=== PATIENT | female | born 1950 | race Caucasian/White ===

== ENCOUNTER → 2021-07-16 11:21 | Outpatient (CLI) | payer MEDICARE, OTHER, SELFPAY ==
--- NOTE | 2021-07-16 11:33 | DI.ECHO.S_ITS ---
[facility] +---------+ : : [address] : : : [place], [place] : : : : [id number] : : : : Phone: [phone]+ Echocardiogram Report + + :Name: JAMEY FITZGERALD Study Date: 07/16/2021 Height: 64 in : :[facility] ReadingLocation: Weight: 140 lb : : Gender: Female BSA: 1.7 m2 : :: 1950 Age: 70 yrs BP: 142/98 mmHg: :Reason For Study: Syncope : :Ordering Physician: DULCE, : :CARLINE Performed By: Peter Estrada : :Referring: CARLINE CONSTANTINO : + + Interpretation Summary 1) Normal left ventricular thickness, size, wall motion, and systolic function (EF 60-65%). 2) Normal right ventricular size and function. 3) No significant valvular abnormalities. 4) No prior Echo available for comparison. Procedure: A two-dimensional transthoracic echocardiogram with color flow and Doppler was performed. The study quality was technically adequate. There is no prior echocardiogram noted for this patient. Left Ventricle: The left ventricle is normal in size and wall thickness. Left ventricular systolic function is normal. The ejection fraction is estimated to be 60-65%. There are no focal wall motion abnormalities. Diastolic parameters suggest probable normal left ventricular diastolic function and normal filling pressures. Right Ventricle: The right ventricle is normal in size and function. Atria: Both atria are normal in size. The interatrial septum grossly appears intact with no obvious evidence for an atrial septal defect. Mitral Valve: The mitral valve is normal in structure and function. There is no mitral regurgitation noted. Aortic Valve: The aortic valve is normal in structure and function. There is no aortic valve stenosis. No aortic regurgitation is present. Tricuspid Valve: The tricuspid valve is normal in structure and function. There is trace tricuspid regurgitation. Right ventricular systolic pressure is normal. Pulmonic Valve: The pulmonic valve is normal in structure and function. There is a trace or physiologic amount of pulmonic regurgitation. Great Vessels: The aortic root is normal size. The ascending aorta is at the upper limits of normal in size. The IVC is of normal diameter and collapses greater than 50% with a sniff. This suggests a low right atrial pressure of 3 mm Hg. Pericardium/ Pleura There is no pericardial effusion. There is no pleural effusion. MMode/2D Measurements & Calculations LVIDd: 4.5 cm LVOT diam: 1.8 cm LVIDs: 3.0 cm Ao root diam: 2.7 cm FS: 32.7 % asc Aorta Diam: 3.7 cm IVSd: 0.65 cm LVPWd: 0.77 cm LV proctor. diameter/BSA (cm/m^2): 2.7 LV sys. diameter/BSA (cm/m^2): 1.8 LA A2 area: 16.0 cm2 RA long axis: 4.1 cm LA A4 area: 13.1 cm2 RA area: 11.4 cm2 LA length (vol): 4.6 cm RA vol: 27.1 ml LA vol: 38.8 ml RA : 16.1 ml/m2 LA vol index: 23.1 ml/m2 TAPSE: 2.6 cm Doppler Measurements & Calculations Ao V2 max: 125.8 cm/sec LVOT Max [place]: 96.5 cm/sec Ao V2 mean: 84.7 cm/sec LV V1 max P.7 mmHg Ao max P.3 mmHg LV V1 VTI: 22.6 cm Ao mean P.2 mmHg GWEN(I,D): 2.3 cm2 Ao V2 VTI: 25.8 cm GWEN(V,D): 2.0 cm2 sev ratio: 0.87 GWEN indexed to BSA (cm^2/m^2): 1.4 MV E max cayetano: 76.8 cm/sec TR max cayetano: 191.0 cm/sec MV A max cayetano: 69.4 cm/sec TR max P.6 mmHg MV E/A: 1.1 Med Peak E' Cay[place]: 7.2 cm/sec E/E' med: 10.7 Lat Peak E' Cay[place]: 7.6 cm/sec E/E' lat: 10.1 E/e' average: 10.4 MV dec time: 0.19 sec SV(LVOT): 58.8 ml Reading Physician:12:[id number] PM
== END ==
PROVIDERS: PCP Internal Medicine; Referring Provider Internal Medicine Cardiovascular Disease; Visit Provider Internal Medicine Cardiovascular Disease
DX: R55 Syncope and collapse (principal)
CPT/HCPCS: 93306

== ENCOUNTER 2023-11-10 09:00 | Emergency (ER) | payer MEDICARE, OTHER, SELFPAY ==
[2023-11-10] VITALS (27 sets, daily range): BP systolic 140–180; BP diastolic 74–99; PULSE 66–91; RESP 15–26; TEMP 36.5; O2SAT 85–98; BMI 25.0
--- NOTE | 2023-11-10 09:04 | DI.RAD.S_ITS ---
PROCEDURE: XR CHEST 1V INDICATIONS: chest pain TECHNIQUE: One view of the chest was acquired. COMPARISON: [facility], CT, CT CHEST ABDOMEN PELVIS WITH CONTRAST, 09/05/2023, 14:45. FINDINGS: Surgical changes and devices: Right-sided port tip projects over the mid SVC. Lungs and pleura: Lungs are clear. No pleural effusions or pneumothorax. Mediastinum: Mediastinal contours appear normal. Heart size is normal. Bones and chest wall: No suspicious bony lesions. Overlying soft tissues appear unremarkable. IMPRESSION: No acute cardiopulmonary process. Dictated by: Jocelyn Arrieta M.D. on 11/10/2023 at 8:35 Approved by: Jocelyn Arrieta M.D. on 11/10/2023 at 8:36
--- NOTE | 2023-11-10 09:15 | EKG_ITS ---
[facility] [address], [place] [address] Test Date: 2023-11-10 Pat Name: Mariaelena Langford Department: [facility] Room: Gender: Female Grad Intern: FIONA : 1950 Requested By: Order Number: [id number] Reading MD: Logan Marshall MD Measurements Intervals [place] Rate: 77 P: 16 MA: 144 QRS: 11 QRSD: 72 T: 16 QT: 400 QTc: 452 Interpretive Statements Normal sinus rhythm Electronically Signed On 11-10-2023 11:03:51 PDT by Logan Marshall MD
[2023-11-10] MEDS: LORazepam 2 MG/ML INJ 0.5 MG IV (09:42)
[2023-11-10 09:45] LABS: Add Manual Diff / Slide Review NO; Basophils Absolute Auto 0 /uL (0-100); Basophils Percent Auto 0.3 % (0-2); Eosinophils Absolute Auto 0 /uL (0-450); Eosinophils Percent Auto 0.2 % (2-4); Hematocrit 36.3 % (36-46); Hemoglobin 12.2 g/dL (12.0-16.0); Lymphocytes Absolute Auto 500 /uL (1100-4500); Lymphocytes Percent Auto 5.6 % (25-40); Mean Corpuscular HGB Conc 33.7 % (30-36); Mean Corpuscular Hemoglobin 34.4 PG (26-34); Mean Corpuscular Volume 101.9 fL (80-100); Monocytes Absolute Auto 500 /uL (0-900); Monocytes Percent Auto 4.7 % (3-14); Neutrophils Absolute Auto 8700 /uL (1500-7000); Neutrophils Percent Auto 89.2 % (50-75); Platelet Count 94 X10^3/uL (150-400); Red Blood Cell Count 3.56 X10^6/uL (4.0-5.2); Red Cell Distribution Width 12.9 % (11.6-14.8); White Blood Cell Count 9.7 X10^3/uL (4.5-11.0)
[2023-11-10 09:54] LABS: Prothrombin Time 11.3 SECONDS (9.4-12.5)
--- NOTE | 2023-11-10 09:55 | PC.NURSE ---
pt was incontinent; brief changed and pt repositioned
[2023-11-10 09:56] LABS: PTT Partial Thromboplastin Tim 28 SECONDS (25.1-36.5)
[2023-11-10 10:06] LABS: Alanine Aminotransferase 40 IU/L (<35); Albumin 3.4 g/dL (3.5-5.0); Albumin Globulin Ratio 1.2 (1.0-2.8); Alkaline Phosphatase 147 U/L (38-126); Aspartate Aminotransferase 59 IU/L (14-36); Bilirubin Total 0.7 mg/dL (0.2-1.3); Blood Urea Nitrogen 21 mg/dL (7-17); Calcium 8.8 mg/dL (8.4-10.2); Carbon Dioxide 23 mmol/L (22-32); Chloride 106 mmol/L (98-107); Creatine Kinase 60 U/L (30-135); Estimated Glomerular Filt Rate > 60 mL/min (>60); Globulin 2.8 g/dL (1.7-4.1); Glucose 123 mg/dL (80-110); HEMOLYSIS < 15 (0-50); Lipase 139 U/L (23-300); Magnesium 1.8 mg/dL (1.6-2.3); Potassium 3.5 mmol/L (3.4-5.1); Sodium 136 mmol/L (137-145); Total Protein 6.2 g/dL (6.3-8.2)
--- NOTE | 2023-11-10 10:09 | ED.GENADULT ---
HPI - General Adult General Chief complaint: Syncope Stated complaint: syncope n+v Time Seen by Provider: 11/10/23 09:10 Source: patient, family and EMS Mode of arrival: EMS Limitations: no limitations History of Present Illness HPI narrative: 72-year-old female history of hypertension, colon cancer with prior colon resection who had surgery this past Friday for removal of cancerous lesions and had some scar tissue also resected that was concerning. Patient was discharged last night from [facility]. She is postop day 3. Patient overnight had syncopal episode x3 when she got up to have a bowel movement. Patient had had bowel movements she states her surgical prep was strawberry red colored and she was having bright red stools prior to her surgery as well as afterwards and it looked very similar to that. She states she went to [facility] [place] felt lightheaded slipped off the toilet and called for her and lost consciousness. They were able to start to walk her back to the bed got about 20 ft and then she had another syncopal episode. Patient states she has continued to feel dizzy when she is upright. No fevers or chills reported. Patient states she did not hit her head, denies any chest pain or shortness of breath. She did have an episode of vomiting this morning was described as bile colored. Had 1 episode at the facility the day after her surgery. Patient states she had diarrhea like stool today does describe it as dark red but states it looks very similar to her prior bowel movements pre and postop. Denies any urinary symptoms. She was on medication for hypertension, prior x3, hysterectomy, had colon resection in 2021 for colon cancer and was having revision for additional lesions and had some additional scar tissue removed that was concerning. This was performed by Dr. Candelaria at [facility]. Dr. Iverson is her oncologist. Primary care is at the [facility]. No tobacco, occasional alcohol, no illicit. Patient accompanied by her who witnessed. Related Data Allergies Allergy/AdvReac Type Severity Reaction Status Date / Time esomeprazole Allergy Severe Difficulty Verified 11/10/23 09:19 Breathing ampicillin Allergy Rash Verified 11/10/23 09:19 hydrochlorothiazide Allergy Swelling Verified 11/10/23 09:19 of Lip/Tongue/Throat lisinopril Allergy Swelling Verified 11/10/23 09:19 of Lip/Tongue/Throat NSAIDS (Non-Steroidal Allergy Nausea Verified 11/10/23 09:19 Anti-Inflamma Penicillins Allergy Rash Verified 11/10/23 09:19 Sulfa (Sulfonamide Allergy Hives Verified 11/10/23 09:19 Antibiotics) sulfamethoxazole Allergy Hives Verified 11/10/23 09:19 [From Sulfamethoxazole-Trimethoprim] trimethoprim Allergy Hives Verified 11/10/23 09:19 [From Sulfamethoxazole-Trimethoprim] aspirin AdvReac Gastrointestinal Verified 11/10/23 09:19 Upset chlorhexidine AdvReac Rash Verified 11/10/23 09:19 metronidazole AdvReac Rash Verified 11/10/23 09:19 ranitidine AdvReac Verified 11/10/23 09:19 Review of Systems Review of Systems ROS Unobtainable: All systems reviewed & are unremarkable except as noted in HPI and below Patient History Social History Smoking Status: Never smoker Smoking Status: Never smoker alcohol intake frequency: 0-2 drinks per day Exam Narrative Exam Narrative: GENERAL: Alert and oriented x three, female in mild distress HEENT: Head normocephalic, atraumatic, EOMI, pupils reactive, no conjunctival pallor, face symmetric, moist mucous membranes NECK: Supple, full range of motion CARDIOVASCULAR: Regular rate and rhythm without murmurs, rubs or gallops. No JVD. No edema bilateral lower extremities. RESPIRATORY: Breath sounds equal bilaterally, no wheezes rales or rhonchi. No tachypnea accessory muscle use. ABDOMEN: Soft, mild generalized tenderness. Patient has a midline incision which is clean dry and intact, no erythema or other skin changes no drainage. Patient also has several small laparoscopic incisions which are also clean dry and intact without any signs of infection. Nondistended. Normoactive bowel sounds all 4 quadrants. No guarding or rebound, rigidity, no mass : No CVA tenderness EXTREMITIES: Normal range of motion, no clubbing or edema. Neurovascularly intact NEUROLOGICAL: Cranial nerves II through XII grossly intact. Moving all extremities SKIN: Warm, dry, no petechiae, no rashes or lesions. Initial Vital Signs Initial Vital Signs: Vital Signs Temperature 97.7 F 11/10/23 09:05 Pulse Rate 78 11/10/23 09:05 Respiratory Rate 16 11/10/23 09:05 Blood Pressure 163/82 H 11/10/23 09:05 Pulse Oximetry 93 11/10/23 09:05 Oxygen Delivery Method Room Air 11/10/23 09:05 Course Orders Ordered: ED Orders 11/10/23 09:04 XR chest 1V Stat EKG-12 Lead Stat 11/10/23 09:39 Complete Blood Count AUTO DIFF Stat Comprehensive Metabolic Panel Stat Lipase Stat Magnesium Stat NT-proBNP (BNP-Adult 18+) Stat PTT Partial Thromboplastin Reji Stat Prothrombin Time INR Stat Troponin & CK Cardiac Panel Stat 11/10/23 10:09 CT abdomen pelvis w con Stat 11/10/23 13:26 Urine Microscopic Stat Discontinued Medications Sodium Chloride (Normal Saline 0.9%) 1,000 mls @ 1,000 mls/hr IV BOLUS ONE Stop: 11/10/23 11:08 Last Infusion: 11/10/23 11:42 Dose: Infused Documented By: Admin: 11/10/23 10:43 Dose: 1,000 mls/hr Documented By: BRIAN Sodium Chloride (Normal Saline 0.9%) 1,000 mls @ 1,000 mls/hr IV BOLUS ONE Stop: 11/10/23 14:18 Last Infusion: 11/10/23 15:00 Dose: Infused Documented By: Admin: 11/10/23 13:27 Dose: 1,000 mls/hr Documented By: BATOOL Lorazepam (Lorazepam 2 Mg/Ml Inj) 0.5 mg IV NOW ONE Stop: 11/10/23 09:11 Last Admin: 11/10/23 09:42 Dose: 0.5 mg Documented By: BRIAN Vital Signs Vital signs: Vital Signs - 8 hr 11/10/23 10:00 11/10/23 10:00 11/10/23 10:20 Pulse Rate 66 Respiratory Rate 16 Blood Pressure 142/78 H 140/78 Pulse Oximetry 95 Oxygen Delivery Method 11/10/23 10:20 11/10/23 10:39 11/10/23 11:00 Pulse Rate 67 75 75 Respiratory Rate 17 15 Blood Pressure Pulse Oximetry 95 93 93 Oxygen Delivery Method Room Air Room Air Room Air 11/10/23 11:30 11/10/23 11:39 11/10/23 11:40 Pulse Rate 72 Respiratory Rate 17 Blood Pressure Pulse Oximetry 93 85 L 96 Oxygen Delivery Method Room Air Room Air Room Air 11/10/23 12:00 11/10/23 12:30 11/10/23 12:42 Pulse Rate 74 76 89 Respiratory Rate 17 19 16 Blood Pressure Pulse Oximetry 94 93 Oxygen Delivery Method 11/10/23 12:42 11/10/23 12:43 11/10/23 12:43 Pulse Rate 91 H Respiratory Rate 26 H Blood Pressure 147/90 H 151/87 H Pulse Oximetry Oxygen Delivery Method 11/10/23 13:00 11/10/23 13:00 11/10/23 13:20 Pulse Rate 81 78 Respiratory Rate 21 21 Blood Pressure 145/88 H Pulse Oximetry 94 96 Oxygen Delivery Method Room Air 11/10/23 13:20 11/10/23 13:30 11/10/23 13:40 Pulse Rate 84 Respiratory Rate 18 Blood Pressure 166/86 H 161/91 H Pulse Oximetry 96 Oxygen Delivery Method 11/10/23 13:40 11/10/23 14:00 11/10/23 14:00 Pulse Rate 76 74 Respiratory Rate 19 19 Blood Pressure 152/87 H Pulse Oximetry 96 94 Oxygen Delivery Method Room Air Room Air 11/10/23 14:20 11/10/23 14:20 11/10/23 14:30 Pulse Rate 81 81 Respiratory Rate 19 21 Blood Pressure 168/94 H Pulse Oximetry 98 97 Oxygen Delivery Method 11/10/23 14:40 11/10/23 14:40 11/10/23 15:04 Pulse Rate 78 85 Respiratory Rate 20 22 Blood Pressure 164/99 H Pulse Oximetry 96 Oxygen Delivery Method Room Air 11/10/23 15:05 11/10/23 15:05 11/10/23 15:21 Pulse Rate 85 81 Respiratory Rate 20 15 Blood Pressure 180/91 H Pulse Oximetry 98 Oxygen Delivery Method Room Air 11/10/23 15:21 11/10/23 15:30 11/10/23 15:40 Pulse Rate 81 81 Respiratory Rate 17 15 Blood Pressure 151/86 H Pulse Oximetry Oxygen Delivery Method 11/10/23 15:40 Pulse Rate Respiratory Rate Blood Pressure 166/93 H Pulse Oximetry Oxygen Delivery Method Medical Decision Making Lab Data 11/10/23 09:39 11/10/23 09:39 Labs: Lab Results 11/10/23 11/10/23 Range/Units 09:39 13:26 WBC 9.7 (4.5-11.0) X10^3/uL RBC 3.56 L (4.0-5.2) X10^6/uL Hgb 12.2 (12.0-16.0) g/dL Hct 36.3 (36-46) % MCV 101.9 H (80-100) fL MCH 34.4 H (26-34) PG MCHC 33.7 (30-36) % RDW 12.9 (11.6-14.8) % Plt Count 94 L (150-400) X10^3/uL Neut % (Auto) 89.2 H (50-75) % Lymph % (Auto) 5.6 L (25-40) % [place] % (Auto) 4.7 (3-14) % Eos % (Auto) 0.2 L (2-4) % Baso % (Auto) 0.3 (0-2) % Neut # (Auto) 8700 H (2763-6767) /uL Lymph # (Auto) 500 L (0239-7386) /uL [place] # (Auto) 500 (0-900) /uL Eos # (Auto) 0 (0-450) /uL Baso # (Auto) 0 (0-100) /uL PT 11.3 (9.4-12.5) SECONDS INR 1.0 (0.9-1.3) APTT 28 (25.1-36.5) SECONDS Sodium 136 L (137-145) mmol/L Potassium 3.5 (3.4-5.1) mmol/L Chloride 106 (98-107) mmol/L Carbon Dioxide 23 (22-32) mmol/L BUN 21 H (7-17) mg/dL Creatinine 0.75 (0.52-1.04) mg/dL Estimated GFR > 60 (>60) mL/min BUN/Creatinine Ratio 28.0 H (6-22) Glucose 123 H (80-110) mg/dL Calcium 8.8 (8.4-10.2) mg/dL Magnesium 1.8 (1.6-2.3) mg/dL Total Bilirubin 0.7 (0.2-1.3) mg/dL AST 59 H (14-36) IU/L ALT 40 H (<35) IU/L Alkaline Phosphatase 147 H (38-126) U/L Total Creatine Kinase 60 (30-135) U/L Troponin I < 0.012 (0.01-0.034) ng/mL NT-Pro-B Natriuret Pep 304 H (<125) pg/mL Total Protein 6.2 L (6.3-8.2) g/dL Albumin 3.4 L (3.5-5.0) g/dL Globulin 2.8 (1.7-4.1) g/dL Albumin/Globulin Ratio 1.2 (1.0-2.8) Lipase 139 (23-300) U/L Urine RBC 0-1/hpf (0-5/HPF) Urine WBC 0-1/hpf (0-5/HPF) Ur Squamous Epith Cells 0-1 /hpf (0-5/HPF) Urine Bacteria Occasional (0-1) (None) Ur Culture Indicated? Cult not indicated Vol Urine Centrifuged 10ml (spun) Point of Care Testing Glucose POC 135 Urine Dip Bedside Urine Glucose Negative Bedside Urine Bilirubin - Negative Bedside Urine Ketone ++ 40 Urine Specific [place] 1.010 Bedside Urine Occult Blood + Bedside Urine pH 6.5 Bedside Urine Protein - Negative Bedside Urine Urobilinogen - Negative Bedside Urine Nitrite - Negative Bedside Urine Leukocytes - Negative Esterase Point of care testing: Point of Care Testing Glucose POC 135 Urine Dip Bedside Urine Glucose Negative Bedside Urine Bilirubin - Negative Bedside Urine Ketone ++ 40 Urine Specific [place] 1.010 Bedside Urine Occult Blood + Bedside Urine pH 6.5 Bedside Urine Protein - Negative Bedside Urine Urobilinogen - Negative Bedside Urine Nitrite - Negative Bedside Urine Leukocytes - Negative Esterase Imaging Data Chest x-ray: Radiologist's Impression: lamma, Penicillins, Sulfa (Sulfonamide Antibiotics), sulfamethoxazole, trimethoprim, aspirin, chlorhexidine, metronidazole, ranitidine (More??) Close Chest X-Ray (Signed) Jocelyn Arrieta - 11/10/23 Echocardiogram Ultrasound (Signed) Rhea Constantino - 07/16/21 Launch?[address] [address] XRay Report Signed Patient: Mariaelena Langford MR#: [id number] : 1950 Acct:[id number] Age/Sex: 72 / F Date of Service: 11/10/23 Loc: ED Accession Number: [id number] Procedure: XR chest 1V Ordering Provider: Luna Joiner D.O. PROCEDURE: XR CHEST 1V INDICATIONS: chest pain TECHNIQUE: One view of the chest was acquired. COMPARISON: [facility], CT, CT CHEST ABDOMEN PELVIS WITH CONTRAST, 09/05/2023, 14:45. FINDINGS: Surgical changes and devices: Right-sided port tip projects over the mid SVC. Lungs and pleura: Lungs are clear. No pleural effusions or pneumothorax. Mediastinum: Mediastinal contours appear normal. Heart size is normal. Bones and chest wall: No suspicious bony lesions. Overlying soft tissues appear unremarkable. IMPRESSION: No acute cardiopulmonary process. Dictated by: Jocelyn Arrieta M.D. on 11/10/2023 at 8:35 Approved by: Jocelyn Arrieta M.D. on 11/10/2023 at 8:36 CT scan - abdomen/pelvis: Radiologist's Impression: icillins, Sulfa (Sulfonamide Antibiotics), sulfamethoxazole, trimethoprim, aspirin, chlorhexidine, metronidazole, ranitidine (More??) Close Abdomen/Pelvis CT (Signed) Jocelyn Arrieta - 11/10/23 Chest X-Ray (Signed) Jocelyn Arrieta - 11/10/23 Echocardiogram Ultrasound (Signed) Rhea Constantino - 07/16/21 [facility] [address] CT Scan Report Signed Patient: Mariaelena Langford MR#: [id number] : 1950 Acct:[id number] Age/Sex: 72 / F Date of Service: 11/10/23 Loc: ED Accession Number: [id number] Procedure: CT abdomen pelvis w con Ordering Provider: Luna Joiner D.O. PROCEDURE: CT ABDOMEN PELVIS W CON INDICATIONS: s/p resection and revision for colon ca friday, red BM, sync TECHNIQUE: After the administration of intravenous contrast, axial sections acquired from the lung bases to the pubic symphysis. Coronal and sagittal reformats were performed. For radiation dose reduction, the following was used: automated exposure control, adjustment of mA and/or kV according to patient size. COMPARISON: [facility], CT, CT CHEST ABDOMEN PELVIS WITH CONTRAST, 09/05/2023, 14:45. FINDINGS: Image quality: Diagnostic. Evaluation for active arterial extravasation is markedly limited on single phase imaging. Lower Chest: Dependent atelectasis. No focal pulmonary consolidation. No basilar effusion. Heart size is borderline enlarged. Small hiatal hernia. ABDOMEN: Liver: No solid mass. Diffuse hypoattenuation of the liver. Right hepatic lobe simple cyst (05/04). Additional scattered subcentimeter hypodensities are too small to characterize and are stable. Gallbladder: Cholecystectomy. Biliary ducts: No biliary dilation. Pancreas: No ductal dilation. Tiny cystic lesion in the pancreatic head which appears contiguous with the pancreatic duct measuring 0.8 x 0.8 cm (, 05/31), stable. Spleen: Size is within normal limits. Adrenal Glands: No adrenal nodules. Kidneys and Ureters: No hydronephrosis. A few (approximately 4) right-sided nonobstructive nephroliths measuring up to 0.3 cm (, , 32, 36). Left interpolar simple cysts. A few subcentimeter bilateral cortical hypodensities are too small to characterize, statistically cysts. No solid mass. No complex renal cystic lesion which requires follow up. Stomach and Bowel: Stomach is decompressed, limiting evaluation, but appears grossly normal. Postsurgical changes of remote right colectomy. Interval postsurgical changes of left partial colectomy with wtih surgical anastomosis in the left descending colon. Small bowel is diffusely dilated measuring up to 3.2 cm with transition point in the left lower quadrant ( 06/01- for) adjacent to the new surgical anastomosis. Peritoneum: Small volume free fluid and a few scattered foci of free air, likely postsurgical. Ventral Wall: Healing midline incision with no fluid collection. A few scattered subcutaneous foci of air in the right anterior abdomen, likely postsurgical versus sequela of subcutaneous injection. Abdominal Nodes: No retroperitoneal or mesenteric adenopathy by size criteria. Vessels: Aorta and inferior vena cava are normal in size. Patent hepatic, portal, splenic and bilateral renal veins. Minimal scattered calcification of the abdominal aorta and iliac vessels. Proximal mesenteric vessels are patent. PELVIS: Pelvic Organs: Unremarkable. Bladder: No bladder wall thickening, accounting for underdistention. Pelvic Nodes: No enlarged lymph nodes. Miscellaneous: No inguinal hernias are seen. Bones: No acute fracture. No aggressive appearing lytic or blastic osseous lesion. Intra osseous hemangioma in the T11 vertebral body multilevel degenerative changes of the spine. Slight levoconvex curvature of the lumbar spine. IMPRESSION: 1. Evaluation for active arterial extravasation is limited on single non phase imaging. If there is high clinical suspicion, recommend a repeat multiphase CTA (noncontrast, arterial and venous delay). 2. Remote right colectomy. Compared to CT dated September 05, 2023, interval resection of colon cancer with intact anastomosis in the left hemiabdomen. Expected postoperative changes including small volume of free air and free fluid. 3. Small bowel is diffusely dilated with transition point in the left hemiabdomen adjacent to the new surgical anastomosis suggestive of a bowel obstruction. 4. Tiny cystic lesion in the pancreatic head which appears contiguous with the pancreatic duct measuring 0.8 x 0.8 cm, stable, likely a side branch IPMN. Attention on follow-up imaging. 5. Diffuse hypoattenuation of the liver suggestive of steatosis. 6. A few right-sided nonobstructive nephroliths measuring up to 0.3 cm. Dictated by: Jocelyn Arrieta M.D. on 11/10/2023 at 10:05 Approved by: Jocelyn Arrieta M.D. on 11/10/2023 at 10:24 ECG Data Attestation: I personally reviewed and interpreted this ECG as follows: Prior ECG tracings: available for review Interpretation: Sinus rhythm rate of 77 MA 144 QRS is [address] acute [address] changes. MDM Narrative Medical decision making narrative: 72-year-old who is post up day 3 for what sounds like either bowel resection or removal of some cancerous lesions and had revision of some scar tissue that was also concerning and Friday [facility]. Patient states she has had red stools but was having that even before and that her prep for her intervention was red. Since she was left she had 1 episode of vomiting in the hospital had episodes this morning, has had diarrhea like stools but no formed stools. Has had pain in her abdomen and 2 or 3 episodes of syncope this morning. Labs overall appears stable. EKG does not show any acute change. Chest x-ray shows no acute change. CT imaging does not show any large fluid collection there is a right remote colectomy with interval resection of colon cancer with intact anastomosis in the left hemiabdomen expected postoperative changes including small volume of free air and free fluid, small bowel is diffusely dilated with a transition point in the left hemiabdomen adjacent to the new surgical anastomosis suggestive of bowel obstruction. Tiny cystic lesion in the pancreatic head which appears contiguous with the pancreatic duct measuring 0.8 x 0.8 cm stable likely a side-branch IPMN attention on follow-up imaging. Diffuse hypoattenuation of the liver suggesting steatosis and a right-sided nonobstructing nephrolith. Point of care urine does show ketones. Negative for nitrates or leukocyte esterase 1 white cell 1 red cell 1 squamous, occasional bacteria. Patient has been hemodynamically stable. Patient did receive a dose of Ativan and has been sleepy afterwards. States she could not tolerate Zofran or Reglan it makes her throw up more. Images pushed to . Call to [facility], consult with Dr. Benson for general surgery. She reviewed patient's imaging she states there is a little bit of tightness at that is spot but she states it does not appear to be clear transition point with the obstruction. She does note that patient is likely somewhat hemoconcentrated compared to her labs Shama bello. Recommend some additional fluid resuscitation, if patient is having persistent vomiting or signs of persistent obstruction they would asked for call back otherwise they would have patient contacted to follow up this week. Discussed she did have 2 syncopal episodes we will manage that from medicine side here locally if no persistent obstructive changes. Patient had 2 L of fluid is able to ambulate not feeling dizzy. Has some mild nausea but has been tolerating orals here in the department. After some discussion she feels comfortable returning home. Discussed strict return precautions any lightheadedness or passing out she was to return, any vomiting or other changes patient is to return. Patient and family feel comfortable with this plan. They are also where they should receive a call tomorrow to set up sooner follow-up. They have oncology follow up on the 24 of November. Discharge Plan Departure Patient Disposition: Home Clinical Impression: Syncope, Dehydration Activity Restrictions/Additional Instructions: Follow up with your surgical team. You should receive a phone call tomorrow on Friday to set up sooner follow-up. I hope you continue to feel improved at home. I suspect you have some dehydration continue to hydrate regularly at home. Your imaging did show little bit of thickening, if you have persistent vomiting increasing abdominal pain or no stool output you do need to be re-evaluated emergently. Please return for fevers, new chest pain or shortness of breath any current recurrent lightheadedness or passing out, any persistent vomiting, if you are having new changes to your bowel movements, worsening abdominal pain any signs of infection at your sites or other new or concerning changes. Referrals: Gabby Martínez MD [Primary Care Provider] - Stand Alone Forms: Patient Portal/API
[2023-11-10 10:17] LABS: NT-proBNP (BNP-Adult 18+) 304 pg/mL (<125); Troponin I < 0.012 ng/mL (0.01-0.034)
--- NOTE | 2023-11-10 10:30 | PC.NURSE ---
Pt reports 2x syncopal episodes today, neither of which she sustained injuires from and states slid to the floor. Pt got up pto the bathroom and remembers sliding to the floor and passing out. She called for her to help her back into bed. Pt was able to walk herself to the bedroom and again had a syncopal episodes sliding to the floor with positive LOC. Spouse called EMS. She denies hitting her head or having head/neck pain. Not dizzy while laying in bed currently. Is nauseated and reports cannot take zofran or reglan for nausea as it makes her symptoms worse. She has had nausea/vomiting at home with no hematemesis. Pt was at [facility] friday for bowel resection revision and stayed inpatient 2x days. History of cancer with over 40% of her colon removed.
[2023-11-10] MEDS: SODIUM CHLORIDE 0.9% 1,000 ML 1000 ML IV ×2 (10:43→13:27)
--- NOTE | 2023-11-10 13:30 | PC.NURSE ---
PO challenge begun at provider verbal direction. Pt takes a few sips of water and begins to complain of coughing and sneezing. Pillow given to help brace. Pt not currently coughing and is able to maintain airway. Pt told to stop drinking. Will recheck patient. Provider Marisel made aware.
[2023-11-10 13:40] LABS: Bacteria Urine Occasional (0-1); Culture Indicated Urine Cult Not Indicated; RBC Urine 0-1/HPF (0-5/HPF); Squamous Epithelial Cell Urine 0-1 /HPF (0-5/HPF); Urine Volume 10mL (spun); WBC Urine 0-1/HPF (0-5/HPF)
--- NOTE | 2023-11-10 15:17 | PC.NURSE ---
PT ambulated with walker, denies dizziness/lightheaded. No emesis but she is nauseated
== END 2023-11-10 16:11 | disposition home or self-care (01) ==
PROVIDERS: Emergency Provider Emergency Medicine; PCP Internal Medicine
DX: R55 Syncope and collapse (principal); E86.0 Dehydration; R07.9 Chest pain, unspecified; Z90.49 Acquired absence of other specified parts of digestive tract
CPT/HCPCS: 71045; 74177; 80053; 81003; 81015; 82550; 83690; 83735; 83880; 84484; 85025; 85610; 85730; 93005; 93010; 96361; 96374; 99284; J2060; Q9967